=== PATIENT | female | born 1980 | race Caucasian/White ===

== ENCOUNTER 2016-11-28 00:37 | Emergency (ER) | payer BC, OTHER ==
[~2016-11-28] VITALS: Ht 167.6 cm; Wt 70.0 kg
[2016-11-28 01:12] VITALS: Ht 167.6 cm; Wt 70.0 kg
[2016-11-28 01:52] VITALS: BP 109/66; PULSE 89; RESP 18; TEMP 98
--- NOTE | 2016-11-28 03:37 | ERD ---
ER Documentation Chief Complaint Date/Time DATE: 11/28/16 TIME: 03:34 Chief Complaint bib RA from home, ETOH/anxiety HPI 36-year-old woman brought in by EMS from home after having an argument with her boyfriend. She has been drinking all night and has a history of alcoholism. Boyfriend called 911 because she was crying and anxious. She had no thoughts or complaints of suicide and denies suicidal homicidal ideation here in the ER, and states she does not know why she was brought in. She denies recent fevers or chills, no blood per rectum or melena, no chest pain or shortness of breath. Patient was transported to by EMS without complications. ROS All systems reviewed and are negative except as per history of present illness. Allergies Allergies: Coded Allergies: No Known Allergy (Unverified , 11/28/16) PMhx/Soc Alcoholism, psychiatric illness History of Surgery: Yes (gastric bypass) Anesthesia Reaction: No Hx Neurological Disorder: No Hx Respiratory Disorders: No Hx Cardiac Disorders: No Hx Psychiatric Problems: Yes (depression) Hx Miscellaneous Medical Probl: No Hx Alcohol Use: Yes (ETOH abuse) Hx Substance Use: No Hx Tobacco Use: Yes Smoking Status: Current every day smoker FmHx Family History: No diabetes Physical Exam Vitals Vital Signs Date Time Temp Pulse Resp B/P Pulse Ox O2 Delivery O2 Flow Rate FiO2 11/28/16 01:52 98.0 89 18 109/66 98 Room Air 11/28/16 01:12 83 17 101/65 96 Physical Exam GENERAL: Well-developed, well-nourished, anxious, alcohol on breath HEENT: Moist mucous membranes, pink conjunctiva, no cervical spine tenderness or step-off deformities, no goiter, no jaundice or icterus, extraocular movements intact without pain. No submandibular induration, and no pharyngeal erythema NEURO: Alert and oriented 3, cranial nerves II through XII intact bilaterally, pupils equal round reactive to light, no focal deficits or facial asymmetry, sensation intact distally Strength 5/5 in upper and lower extremities bilaterally CARDIAC: Regular rate and rhythm, no murmurs rubs or gallops LUNGS: Clear bilaterally no wheezing crackles or stridor ABDOMEN: Soft nontender, no guarding, no rigidity, no rebound, no psoas sign no obturator sign. Normoactive bowel sounds SKIN: Warm and dry to touch, no abrasions, contusions, or hematomas, no lacerations, no ecchymosis, no target lesions, and without ulcers EXTREMITIES: No clubbing cyanosis or edema, calves are bilaterally symmetrical, no Homans sign, no popliteal cord sign. Distal pulses equal and bilateral PSYCH: Anxious Procedures/MDM Patient was seen, and evaluated by me in the ED. She did not want any intervention and did not know why she was brought in. She is obviously intoxicated but she is able to ambulate without difficulty and able to answer all my questions and make her own decisions. Her boyfriend did come to the ED and stated he would be driving her home. Differential diagnoses considered, included but not limited to acute coronary syndrome, pulmonary embolism, aortic dissection, abdominal aortic aneurysm, sepsis, stroke, meningitis, encephalitis, pneumonia, appendicitis, cholecystitis , bowel obstruction, pyelonephritis, nephrolithiasis, cystitis, as well as metabolic, hematologic, and electrolyte abnormalities. As well as abscess, cellulitis, fractures, and dislocations. Patient feels much better at this time, and vital signs are normal, symptoms have improved. I did give strict instructions to return to the ED if symptoms continue or worsen, patient will otherwise follow-up with primary care physician. Patient understood instructions and agreed to plan. Disclaimer: Inadvertent spelling and grammatical errors are likely due to EHR/ dictation software use and do not reflect on the overall quality of patient care. Also, please note that the electronic time recorded on this note does not necessarily reflect the actual time of the patient encounter. Departure Diagnosis: Primary Impression: Alcohol abuse Additional Impression: Anxiety attack Condition: Good Patient Instructions: Anxiety Reaction, Alcohol Intoxication, Alcohol Abuse MANNY PAEZ MD Nov 28, 2016 03:37
== END 2016-11-28 01:52 | disposition home or self-care (01) ==
LOC: E/R 00:37
DX: F10.10 Alcohol abuse, uncomplicated (principal); F41.9 Anxiety disorder, unspecified; F17.210 Nicotine dependence, cigarettes, uncomplicated; R40.2142 Coma scale, eyes open, spontaneous, at arrival to emergency department; R40.2252 Coma scale, best verbal response, oriented, at arrival to emergency department; R40.2362 Coma scale, best motor response, obeys commands, at arrival to emergency department
CPT/HCPCS: 99283

== ENCOUNTER 2017-03-07 10:40 | Emergency (ER) | payer SELFPAY ==
[~2017-03-07] VITALS: Ht 175.3 cm; Wt 81.2 kg
[2017-03-07 10:43] VITALS: Ht 175.3 cm; Wt 81.2 kg
== END 2017-03-07 17:57 | disposition left against medical advice (07) ==
LOC: E/R 10:40
DX: Z53.21 Procedure and treatment not carried out due to patient leaving prior to being seen by health care provider (principal)